=== PATIENT | female | born 1965 | race Two or more races ===

== ENCOUNTER 2025-03-30 13:34 | Inpatient (IN) | payer MEDICAID ==
[~2025-03-30] VITALS: Ht 162.6 cm; Wt 56.7 kg
[2025-03-30] VITALS (10 sets, daily range): BP systolic 124–134; BP diastolic 77–118; TEMP 98.7; O2SAT 95–99
[2025-03-30] MEDS: IV NS 0.9% 1,000 ML BAG IV ONE (14:00)
[2025-03-30] MEDS ORDERED: PIPERACI/TAZO 3.375GM/D5W 50ML PB IV ONE (14:02)
[2025-03-30] MEDS: PIPERACILLIN /TAZOBACTAM 3.375 G in IV D5W 50 ML IV ONE (14:05)
[2025-03-30 14:11] LABS: APPEARANCE,URINE CLEAR (CLEAR); BILIRUBIN,URINE NEGATIVE (NEGATIVE); BLOOD, URINE 2+ Ery/uL (NEGATIVE); COLOR,URINE YELLOW (YELLOW); KETONES,URINE TRACE mg/dL (NEGATIVE); LEUKOCYTE ESTERASE ,URINE 3+ (NEGATIVE); NITRITE, URINE NEGATIVE (NEGATIVE); PH,URINE 8.5 (5.0-8.0); PROTEIN,URINE 3+ mg/dl (NEGATIVE); UGLUCOSE NEGATIVE (NEGATIVE)
[2025-03-30 14:16] LABS: ABG BASE EXCESS 4.6 mmol/L (-2.0-3.0); ABG OXYGEN SATURATION 90.1 % (94.0-98.0); ABG PCO2 30.3 mmHg (32.0-45.0); ABG PH 7.558 (7.350-7.450); ABG PO2 56.3 mmHg (83.0-108.0); ABG TOTAL HEMOGLOBIN 12.1 G/dL (12.0-16.0); COHb 0.3 % (0.5-1.5); MetHb 0.2 % (0.0-1.5); O2Hb 89.6 % (94.0-97.0); SITE, ABG LEFT RADIAL
[2025-03-30 14:26] LABS: ADD URINE CULTURE YES; BACTERIA,URINE Moderate /HPF (None Seen)
[2025-03-30] MEDS ORDERED: VANCOMYCIN 1 GM /D5W 250 ML PB IV ONE (14:37)
[2025-03-30 14:38] LABS: CALCIUM, SERUM 9.6 mg/dL (8.5-10.1); CARBON DIOXIDE 29 mmol/L (21-32); CHLORIDE 114 mmol/L (98-107); CREATININE 1.5 mg/dL (0.6-1.3); GLUCOSE 361 mg/dL (74-106); POTASSIUM 3.4 mmol/L (3.5-5.1); SODIUM SERUM 155 mmol/L (136-145); UREA NITROGEN, BLOOD 54 mg/dL (7-18)
[2025-03-30] MEDS ORDERED: ACETAMINOPHEN 650 MG/20.3 ML UDC ONE (14:38)
[2025-03-30] MEDS: ACETAMINOPHEN 650 MG/20 ML UDC- SA PATIENTS-FEVER ONLY GT PRN (14:40)
[2025-03-30 14:41] LABS: LACTIC ACID 3.8 mmol/L (0.4-2.0)
[2025-03-30 14:46] LABS: ALANINE AMINOTRANSFERASE 35 U/L (12-78); ALBUMIN 2.3 g/dL (3.4-5.0); ALKALINE PHOSPHATASE 134 U/L (46-116); ASPARTATE AMINOTRANSFERASE 31 U/L (15-37); BILIRUBIN,DIRECT 0.1 mg/dL (0.0-0.2); BILIRUBIN,TOTAL 0.3 mg/dL (0.2-1.0); TOTAL PROTEIN, SERUM 9.6 g/dL (6.4-8.2)
[2025-03-30] MEDS: VANCOMYCIN 1 GM in IV D5W 250 ML IV ONE (14:52)
[2025-03-30] MEDS ORDERED: *INS REG3 SQ (15:05)
[2025-03-30] MEDS ORDERED: CRAN3875 GT (15:05)
[2025-03-30] MEDS ORDERED: DOCU50LI GT (15:05)
[2025-03-30] MEDS ORDERED: ACET-2030 GT (15:05)
[2025-03-30] MEDS ORDERED: NA P133E RC (15:05)
[2025-03-30] MEDS ORDERED: CRAN400C GT (15:05)
[2025-03-30] MEDS ORDERED: NUT.237L30 GT (15:05)
[2025-03-30] MEDS ORDERED: ACET325T53 GT (15:05)
[2025-03-30] MEDS ORDERED: AMLO10TA4 GT (15:05)
[2025-03-30] MEDS ORDERED: HEPA500039 SQ (15:05)
[2025-03-30] MEDS ORDERED: MULT-213 GT (15:05)
[2025-03-30] MEDS ORDERED: ZINC220T4 GT (15:05)
[2025-03-30] MEDS ORDERED: ASCO-352 GT (15:05)
[2025-03-30] MEDS ORDERED: INSU100V7 SQ (15:05)
[2025-03-30] MEDS ORDERED: BISA10SU11 RC (15:05)
[2025-03-30] MEDS ORDERED: ATOR80TA GT (15:05)
[2025-03-30] MEDS ORDERED: PROTEIN LIQUID GT (15:05)
[2025-03-30] MEDS ORDERED: MAGN400O6 GT (15:05)
[2025-03-30 15:10] LABS: BASOPHILS % (AUTO) 0.1 % (0.0-2.0); EOSINOPHILS % (AUTO) 0.1 % (0.0-6.0); HEMATOCRIT 37 % (33-45); HEMOGLOBIN 11.8 g/dL (11.5-14.8); LYMPHOCYTES # (AUTO) 1.3 K/uL (0.8-4.8); LYMPHOCYTES % (AUTO) 9.7 % (20.0-44.0); MEAN CORPUSCULAR HEMOGLOBIN 26 PG (26.0-33.0); MEAN CORPUSCULAR HGB CONC 32 g/dl (31.0-36.0); MEAN CORPUSCULAR VOLUME 82 fL (82-100); MONOCYTES # (AUTO) 0.5 K/uL (0.1-1.30); MONOCYTES % (AUTO) 3.6 % (2.0-12.0); NEUTROPHILS # (AUTO) 11.6 K/uL (1.8-8.9); NEUTROPHILS % (AUTO) 86.5 % (43.0-81.0); RED BLOOD CELL COUNT(AUTO) 4.54 MIL/uL (4.0-5.2); RED CELL DISTRIBUTION WIDTH 19.5 % (11.5-15.0); WHITE BLOOD COUNT (AUTO) 13.4 K/uL (4.3-11.0)
[2025-03-30 15:19] LABS: INR 1.07 (0.91-1.10); PARTIAL THROMBOPLASTIN TIME 27.2 SEC (24.3-34.3); PROTHROMBIN TIME 11.3 SECS (9.2-11.1)
[2025-03-30] MEDS ORDERED: Z GUARD REMEDY 4 OZ OINT TP PRN (18:00)
[2025-03-30] MEDS ORDERED: NA PHOS,M-B/NA PHOS,DI-BA 1 EA ENEMA RC PRN (18:00)
[2025-03-30] MEDS ORDERED: INSULIN REGULAR, HUMAN 100 UNIT/ML 3 ML VIAL SQ PRN (18:00)
[2025-03-30] MEDS ORDERED: DEXTROSE 50%-WATER 50 ML DISP.SYRIN IV PRN ×2 (18:00→21:00)
[2025-03-30] MEDS ORDERED: *INSULIN REGULAR(HUMULIN R)HUM 100 UNIT/ML VIAL SQ PRN (18:00)
[2025-03-30] MEDS ORDERED: MAG HYDROX/AL HYDROX/SIMETH 30 ML UDC PO PRN (18:00)
[2025-03-30] MEDS ORDERED: MAGNESIUM HYDROXIDE 30 ML UDC PO PRN (18:00)
[2025-03-30] MEDS ORDERED: ONDANSETRON HCL/PF 4 MG/2 ML VIAL IVP PRN (18:00)
[2025-03-30] MEDS: IV NS 0.9% 1,000 ML IV PRN (20:58)
[2025-03-30] MEDS: PIPERACILLIN /TAZOBACTAM 3.375 G in IV D5W 100 ML IV SCH (21:01)
[2025-03-30] MEDS ORDERED: BLOOD SUGAR DIAGNOSTIC 1 EACH STRIP VI SCH (22:00)
[2025-03-30 23:30] LABS: LYMPHOCYTES % (MANUAL) 7 % (16-48); MONOCYTES % (MANUAL) 5 % (0-11.0); NEUTROPHILS % (MANUAL) 88 (42-76); PLATELET ESTIMATE ADEQUATE
[2025-03-30 23:31] LABS: ANISOCYTOSIS 1+
[2025-03-30] MEDS: BLOOD SUGAR DIAGNOSTIC 1 EACH STRIP IN SCH (23:45)
[2025-03-30] MEDS: INSULIN REGULAR, HUMAN 100 UNIT/ML 3 ML VIAL SQ PRN (23:50)
[2025-03-31] VITALS (28 sets, daily range): BP systolic 116–146; BP diastolic 75–110; TEMP 98.1–98.9; O2SAT 98–100
[2025-03-31 04:56] LABS: BASOPHILS % (AUTO) 0.1 % (0.0-2.0); EOSINOPHILS # (AUTO) 0.2 K/uL (0.0-0.7); EOSINOPHILS % (AUTO) 1.2 % (0.0-6.0); HEMATOCRIT 33 % (33-45); HEMOGLOBIN 10.1 g/dL (11.5-14.8); LYMPHOCYTES # (AUTO) 1.7 K/uL (0.8-4.8); LYMPHOCYTES % (AUTO) 11.2 % (20.0-44.0); MEAN CORPUSCULAR HEMOGLOBIN 26 PG (26.0-33.0); MEAN CORPUSCULAR HGB CONC 31 g/dl (31.0-36.0); MEAN CORPUSCULAR VOLUME 83 fL (82-100); MONOCYTES # (AUTO) 0.6 K/uL (0.1-1.30); NEUTROPHILS # (AUTO) 12.8 K/uL (1.8-8.9); NEUTROPHILS % (AUTO) 83.5 % (43.0-81.0); PLATELET COUNT (AUTO) 251 K/uL (150-450); RED BLOOD CELL COUNT(AUTO) 3.93 MIL/uL (4.0-5.2); RED CELL DISTRIBUTION WIDTH 19.3 % (11.5-15.0); WHITE BLOOD COUNT (AUTO) 15.4 K/uL (4.3-11.0)
[2025-03-31 05:01] LABS: CREATININE 1.1 mg/dL (0.6-1.3); MAGNESIUM 2.8 mg/dL (1.8-2.4); PHOSPHORUS 2.7 mg/dL (2.5-4.9)
[2025-03-31 05:09] LABS: POTASSIUM 2.9 mmol/L (3.5-5.1)
[2025-03-31 06:04] LABS: LYMPHOCYTES % (MANUAL) 12 % (16-48); MONOCYTES % (MANUAL) 3 % (0-11.0); NEUTROPHILS % (MANUAL) 85 (42-76)
[2025-03-31 06:05] LABS: PLATELET ESTIMATE ADEQUATE
[2025-03-31 06:06] LABS: ANISOCYTOSIS 1+
[2025-03-31] MEDS: HEPARIN SODIUM, PORCINE 5000 UNITS/1 ML VIAL SQ SCH (08:27)
[2025-03-31] MEDS: IV 1/2NS 1000 ML 1,000 ML IV SCH (10:28)
[2025-03-31] MEDS: POTASSIUM CL. PREMIX PERIPHER. 50 ML IV SCH (10:30)
[2025-03-31] MEDS: FREE WATER VIA TUBE FEEDING GT SCH (11:42)
[2025-03-31] MEDS ORDERED: VANCOMYCIN 1 GM in IV D5W 250ml IV SCH (15:00)
[2025-03-31] MEDS: VANCOMYCIN 750 MG in IV D5W 250 ML IV SCH (15:44)
[2025-03-31 17:41] LABS: CALCIUM, SERUM 8.9 mg/dL (8.5-10.1)
[2025-03-31 17:45] LABS: POTASSIUM 3.7 mmol/L (3.5-5.1)
[2025-04-01] VITALS (33 sets, daily range): BP systolic 120–156; BP diastolic 72–101; TEMP 97.5–99.1; O2SAT 88–100
[2025-04-01 04:52] LABS: BASOPHILS % (AUTO) 0.3 % (0.0-2.0); EOSINOPHILS # (AUTO) 0.6 K/uL (0.0-0.7); EOSINOPHILS % (AUTO) 3.8 % (0.0-6.0); HEMATOCRIT 30 % (33-45); HEMOGLOBIN 9.2 g/dL (11.5-14.8); LYMPHOCYTES # (AUTO) 1.9 K/uL (0.8-4.8); LYMPHOCYTES % (AUTO) 11.7 % (20.0-44.0); MEAN CORPUSCULAR HEMOGLOBIN 26 PG (26.0-33.0); MEAN CORPUSCULAR HGB CONC 31 g/dl (31.0-36.0); MEAN CORPUSCULAR VOLUME 83 fL (82-100); MONOCYTES # (AUTO) 0.6 K/uL (0.1-1.30); MONOCYTES % (AUTO) 3.8 % (2.0-12.0); NEUTROPHILS # (AUTO) 12.9 K/uL (1.8-8.9); NEUTROPHILS % (AUTO) 80.4 % (43.0-81.0); PLATELET COUNT (AUTO) 244 K/uL (150-450); RED BLOOD CELL COUNT(AUTO) 3.57 MIL/uL (4.0-5.2); RED CELL DISTRIBUTION WIDTH 19.1 % (11.5-15.0); WHITE BLOOD COUNT (AUTO) 16.1 K/uL (4.3-11.0)
[2025-04-01 05:11] LABS: ALBUMIN 1.8 g/dL (3.4-5.0); BILIRUBIN,TOTAL 0.5 mg/dL (0.2-1.0); MAGNESIUM 2.7 mg/dL (1.8-2.4); PHOSPHORUS 2.7 mg/dL (2.5-4.9)
[2025-04-01 05:16] LABS: POTASSIUM 3.5 mmol/L (3.5-5.1)
[2025-04-01] MEDS: FREE WATER VIA TUBE FEEDING GT SCH (08:30)
[2025-04-01] MEDS: IV D5W 1,000 ML IV SCH (10:49)
[2025-04-01] MEDS: IV D5W 1,000 ML IV ONE (10:49)
[2025-04-01] MEDS ORDERED: CEFEPIME 1 GM VIAL IM SCH (11:30)
[2025-04-01] MEDS: ACETYLCYSTEINE 20% SOLN 800 MG/4 ML VIAL NEB SCH (12:30)
[2025-04-01] MEDS: IPRATROPIUM NEB FS 0.5 MG/2.5 ML AMPUL.NEB NEB SCH (13:41)
[2025-04-01] MEDS: ALBUTEROL HALF STRENGTH 1.25 MG/3 ML VIAL.NEB NEB SCH (13:42)
[2025-04-01 14:47] LABS: CALCIUM, SERUM 8.8 mg/dL (8.5-10.1); CREATININE 1.2 mg/dL (0.6-1.3); POTASSIUM 3.5 mmol/L (3.5-5.1)
[2025-04-01] MEDS: VANCOMYCIN 500 MG in IV D5W 100ml IV SCH (16:30)
[2025-04-01] MEDS: MEROPENEM 500MG/NS 50 ML PB IV ONE (22:07)
[2025-04-01] MEDS: MEROPENEM 1 G in IV NS 0.9% 100 ML IV SCH (22:10)
[2025-04-02] VITALS (48 sets, daily range): BP systolic 126–161; BP diastolic 69–99; TEMP 98.1–98.8; O2SAT 99–100
[2025-04-02 04:44] LABS: CALCIUM, SERUM 8.7 mg/dL (8.5-10.1); CREATININE 0.8 mg/dL (0.6-1.3)
[2025-04-02 04:53] LABS: PHOSPHORUS 3.6 mg/dL (2.5-4.9)
[2025-04-02 05:00] LABS: THYROID STIMULATING HORMONE 1.02 uIU/mL (0.358-3.74); URIC ACID 3.8 mg/dL (2.6-7.2)
[2025-04-02 05:13] LABS: POTASSIUM 2.6 mmol/L (3.5-5.1)
[2025-04-02] MEDS: POTASSIUM CL. PREMIX PERIPHER. 50 ML IV SCH (06:34)
[2025-04-02] MEDS: MEROPENEM 1 G in IV NS 0.9% 100 ML IV SCH (06:37)
[2025-04-02 08:21] LABS: ABG BASE EXCESS -0.2 mmol/L (-2.0-3.0); ABG OXYGEN SATURATION 97.6 % (94.0-98.0); ABG PCO2 29.6 mmHg (32.0-45.0); ABG PH 7.498 (7.350-7.450); ABG PO2 97.8 mmHg (83.0-108.0); ABG TOTAL HEMOGLOBIN 9.6 G/dL (12.0-16.0); COHb 0.3 % (0.5-1.5); MetHb 0.1 % (0.0-1.5); O2Hb 97.2 % (94.0-97.0); SITE, ABG RIGHT RADIAL
[2025-04-02] MEDS: GLUCERNA 1.2 1,000 ML BOTTLE NG PRN (13:34)
[2025-04-03] VITALS (35 sets, daily range): BP systolic 96–156; BP diastolic 19–112; TEMP 98.4–100.2; O2SAT 93–100
[2025-04-03] MEDS: ACETAMINOPHEN 325 MG TABLET PO PRN (03:50)
[2025-04-03 04:58] LABS: CREATININE 0.7 mg/dL (0.6-1.3); POTASSIUM 3.4 mmol/L (3.5-5.1)
[2025-04-03] MEDS: IV D5W 1,000 ML IV PRN (07:15)
[2025-04-03] MEDS: POTASSIUM CHLORIDE 20 MEQ POWDER PACKET NG SCH (11:28)
[2025-04-03 12:06] LABS: *SPE A/G RATIO 0.4 (0.7-1.7); *SPE ALPHA-1-GLOBULIN 0.4 g/dL (0.0-0.4); *SPE ALPHA-2-GLOBULIN 1.6 g/dL (0.4-1.0); *SPE BETA GLOBULIN 1.2 g/dL (0.7-1.3); *SPE GLOBULIN, TOTAL 5.1 g/dL (2.2-3.9); *SPE M-SPIKE Not Observed g/dL (Not Observed); *SPE PROTEIN TOTAL 7.1 g/dL (6.0-8.5); *SPEGAMMA GLOBULIN 1.9 g/dL (0.4-1.8)
[2025-04-03] MEDS: NYSTATIN (PYXIS) 500,000 UNIT/5 ML ORAL.SUSP PO SCH (16:49)
[2025-04-03] MEDS: CEFTRIAXONE 1 G in IV D5W 50 ML IV SCH (20:42)
[2025-04-04] VITALS (13 sets, daily range): BP systolic 107–149; BP diastolic 63–81; TEMP 98.2–98.6; O2SAT 95–100
[2025-04-04 01:06] LABS: PTH, INTACT 61 pg/mL (15-65)
[2025-04-04 07:29] LABS: CALCIUM, SERUM 9.2 mg/dL (8.5-10.1); CREATININE 0.8 mg/dL (0.6-1.3); MAGNESIUM 2.3 mg/dL (1.8-2.4); POTASSIUM 3.9 mmol/L (3.5-5.1)
== END 2025-04-04 17:10 | DRG 720 ==
LOC: ER 13:44 → ICU 18:50 → TELE1 04-03 18:54 → MEDSG1 04-04 14:59
PROVIDERS: ADMIT Internal Medicine; ATTEND Nurse Practitioner Acute Care
DX: A41.59 Other Gram-negative sepsis (principal); N17.0 Acute kidney failure with tubular necrosis; J96.21 Acute and chronic respiratory failure with hypoxia; J69.0 Pneumonitis due to inhalation of food and vomit; R65.21 Severe sepsis with septic shock; G93.41 Metabolic encephalopathy; J15.69 Pneumonia due to other Gram-negative bacteria; E87.20 Acidosis, unspecified; E44.0 Moderate protein-calorie malnutrition; D68.59 Other primary thrombophilia; E87.0 Hyperosmolality and hypernatremia; E11.42 Type 2 diabetes mellitus with diabetic polyneuropathy; D64.9 Anemia, unspecified; N31.9 Neuromuscular dysfunction of bladder, unspecified; Z20.822 Contact with and (suspected) exposure to COVID-19; Z86.19 Personal history of other infectious and parasitic diseases; I69.354 Hemiplegia and hemiparesis following cerebral infarction affecting left non-dominant side; I10 Essential (primary) hypertension; E88.09 Other disorders of plasma-protein metabolism, not elsewhere classified; E78.5 Hyperlipidemia, unspecified; Z87.09 Personal history of other diseases of the respiratory system; Z79.01 Long term (current) use of anticoagulants; Z79.4 Long term (current) use of insulin; Z79.899 Other long term (current) drug therapy; Z93.1 Gastrostomy status; E86.1 Hypovolemia; M89.8X9 Other specified disorders of bone, unspecified site; R13.10 Dysphagia, unspecified; S90.822A Blister (nonthermal), left foot, initial encounter; X58.XXXA Exposure to other specified factors, initial encounter; Y92.9 Unspecified place or not applicable; L89.622 Pressure ulcer of left heel, stage 2; N39.0 Urinary tract infection, site not specified; Z74.09 Other reduced mobility; F01.50 Vascular dementia, unspecified severity, without behavioral disturbance, psychotic disturbance, mood disturbance, and anxiety; M62.462 Contracture of muscle, left lower leg; M62.461 Contracture of muscle, right lower leg; L98.9 Disorder of the skin and subcutaneous tissue, unspecified; E86.0 Dehydration; L89.892 Pressure ulcer of other site, stage 2; E87.6 Hypokalemia
CPT/HCPCS: 36415; 36600; 71045-TC; 80048-TC; 80053-TC; 80076-TC; 80202-TC; 81001; 82550-TC; 82803-TC; 82962-TC; 83605-TC; 83735-TC; 83970; 84100-TC; 84155; 84165; 84443-TC; 84550-TC; 85025-TC; 85730-TC; 87040-TC; 87086-TC; 87186-TC; 94799-TC; 99082-TC; A4223; A6403; G0378; J0696; J1644; J1815; J2185; J2543; J3370; J3371; J3480; J3490; J7030; J7050; J7060; J7070